=== PATIENT | female | born 1980 | race Caucasian/White ===

== ENCOUNTER → 2017-03-19 | Outpatient (CLI) | payer BC ==
--- NOTE | 2017-03-19 13:24 | MM ---
Reason for exam: clinical finding. Last mammogram was performed 5 years and 10 months ago. History: Patient had first child at age 31. Indicated problem(s): lump or thickening in the right breast. Physical Findings: Nurse Summary: A 1 x 1cm nodule in the right breast at 12 o'clock, patient area of concern (nurse ts). MG 3D Diag Mammo W/Cad ENDY Bilateral CC and MLO view(s) were taken. Prior study comparison: May 26, 2011, CAD bilateral diagnostic mammogram. There are scattered fibroglandular densities. Finding: There are typically benign round, diffuse and grouped calcifications in both breasts. There is no discrete abnormality. These results were verbally communicated with the patient and result sheet given to the patient on 03/19/17. ASSESSMENT: Incomplete: need additional imaging evaluation, BI-RAD 0 RECOMMENDATION: Ultrasound of the right breast. Palpable abnormality.
--- NOTE | 2017-03-19 13:30 | USB ---
Reason for exam: clinical finding. History: Patient had first child at age 31. US Breast Limited RT Right breast ultrasound demonstrates a 1.2 x 0.6 x 1.2cm oval, solid, hyperechoic lesion at 1 o'clock at palpable, probable lipoma. These results were verbally communicated with the patient and result sheet given to the patient on 03/19/17. ASSESSMENT: Probably benign, BI-RAD 3 RECOMMENDATION: Ultrasound of the right breast in 3-6 months. MTDD
== END | disposition home or self-care (01) ==
LOC: RADMAMWWP 08:44
PROVIDERS: ATTEND Obstetrics & Gynecology
DX: N63 Unspecified lump in breast (principal); R92.8 Other abnormal and inconclusive findings on diagnostic imaging of breast
CPT/HCPCS: 76642; G0204; G0279

== ENCOUNTER 2017-10-20 07:10 | Emergency (ER) | payer BC ==
[2017-10-20 07:15] VITALS: RESP 18
--- NOTE | 2017-10-20 07:47 | ED ---
General Adult HPI - General Chief complaint: Chest Pain Stated complaint: CHEST PAIN Time Seen by Provider: 10/20/17 07:10 Source: patient, RN notes reviewed Mode of arrival: ambulatory Limitations: no limitations - History of Present Illness Initial comments: This is a 37-year-old female presents emergency Department complaining of left sided chest pain on the left side of her breast. Patient states the pain comes and lasts for about 3 seconds and goes away. Patient states was no associated symptoms was no radiation of the pain. Patient states it feels like gas bubble but that is gone. Patient states this happened a handful of times since 5:45 this morning but none of last more than 3 seconds. Patient denied any shortness of breath or difficulty breathing. Patient denies any diaphoresis. Patient denies any nausea or vomiting. Patient states currently she is having no chest pain and feels completely normal. Patient denies high blood pressure or high cholesterol she does have diabetes and she denies any smoking history. Patient states her father did have a heart attack at 58. Patient denies any abdominal pain. Patient denies any recent fever chills or cough. Patient states she has been doing a lot of moving in the last few days so she thought maybe she strained something. - Related Data Home Medications Medication Instructions Recorded Confirmed Ibuprofen [Motrin Ib] 600 mg PO Q6H PRN 10/20/17 10/20/17 metFORMIN HCL ER [Glucophage Xr] 500 mg PO BID 10/20/17 10/20/17 Allergies Allergy/AdvReac Type Severity Reaction Status Date / Time amoxicillin Allergy Rash/Hives Verified 10/20/17 08:43 cephalexin [From Keflex] Allergy Itching Verified 10/20/17 08:43 Review of Systems ROS Statement: Those systems with pertinent positive or pertinent negative responses have been documented in the HPI. ROS Other: All systems not noted in ROS Statement are negative. Past Medical History Past Medical History: Diabetes Mellitus Additional Past Medical History / Comment(s): HX OF MTHFR, DIET CONTROLLED DIABETIC History of Any Multi-Drug Resistant Organisms: MRSA Date of last positivie culture/infection: 02/2016 MDRO Source:: left lower abdomen Past Surgical History: Adenoidectomy, Section, Cholecystectomy, Tonsillectomy Additional Past Surgical History / Comment(s): D&C, fatpad biopsy Past Anesthesia/Blood Transfusion Reactions: No Reported Reaction Past Psychological History: No Psychological Hx Reported Smoking Status: Never smoker Past Alcohol Use History: None Reported Past Drug Use History: None Reported - Past Family History Mother Family Medical History: No Reported History General Exam - General Exam Comments Initial Comments: GENERAL: Patient is well-developed and well-nourished. Patient is nontoxic and well- hydrated and is in no acute distress. ENT: Neck is soft and supple. No significant lymphadenopathy is noted. Oropharynx is clear. Moist mucous membranes. Neck has full range of motion without eliciting any pain. EYES: The sclera were anicteric and conjunctiva were pink and moist. Extraocular movements were intact and pupils were equal round and reactive to light. Eyelids were unremarkable. PULMONARY: Unlabored respirations. Good breath sounds bilaterally. No audible rales rhonchi or wheezing was noted. CARDIOVASCULAR: There is a regular rate and rhythm without any murmurs gallops or rubs. ABDOMEN: Soft and nontender with normal bowel sounds. No palpable organomegaly was noted. There is no palpable pulsatile mass. SKIN: Skin is clear with no lesions or rashes and otherwise unremarkable. NEUROLOGIC: Patient is alert and oriented 3 cranial nerves II through XII are grossly intact motor and sensory are also intact MUSCULOSKELETAL: Normal extremities with adequate strength and full range of motion. No lower extremity swelling or edema. No calf tenderness. LYMPHATICS: No significant lymphadenopathy is noted PSYCHIATRIC: Normal psychiatric evaluation. Limitations: no limitations Course Vital Signs 10/20/17 07:12 Temperature 98.1 F Pulse Rate 81 Respiratory 18 Rate Blood Pressure 178/75 O2 Sat by Pulse 100 Oximetry Medical Decision Making - Medical Decision Making EKG shows normal sinus rhythm at 70 bpm NV interval 134 QRS is 84 Q-T intervals 376 QTC is 406. EKG shows no ST segment elevation or depression or T wave abnormalities are noted. Chest x-ray shows no acute normalities. Patient states the frequency of these episodes is significantly reduced. I spoke with Dr. Dee he will follow-up with the patient. Patient is in agreement with this. - Lab Data Result diagrams: 10/20/17 08:04 10/20/17 08:04 Lab Results 10/20/17 10/20/17 10/20/17 Range/Units 08:04 08:04 08:04 WBC 7.1 (3.8-10.6) k/uL RBC 5.09 (3.80-5.40) m/uL Hgb 13.4 (11.4-16.0) gm/dL Hct 40.1 (34.0-46.0) % MCV 78.9 L (80.0-100.0) fL MCH 26.3 (25.0-35.0) pg MCHC 33.3 (31.0-37.0) g/dL RDW 13.6 (11.5-15.5) % Plt Count 229 (150-450) k/uL Neutrophils % 72 % Lymphocytes % 20 % Monocytes % 4 % Eosinophils % 3 % Basophils % 0 % Neutrophils # 5.1 (1.3-7.7) k/uL Lymphocytes # 1.4 (1.0-4.8) k/uL Monocytes # 0.3 (0-1.0) k/uL Eosinophils # 0.2 (0-0.7) k/uL Basophils # 0.0 (0-0.2) k/uL PT (9.0-12.0) sec INR (<1.2) APTT (22.0-30.0) sec Sodium 137 (137-145) mmol/L Potassium 4.9 (3.5-5.1) mmol/L Chloride 104 (98-107) mmol/L Carbon Dioxide 23 (22-30) mmol/L Anion Gap 10 mmol/L BUN 15 (7-17) mg/dL Creatinine 0.52 (0.52-1.04) mg/dL Est GFR (CKD-EPI)AfAm >90 (>60 ml/min/1.73 sqM) Est GFR (CKD-EPI)NonAf >90 (>60 ml/min/1.73 sqM) Glucose 242 H (74-99) mg/dL Calcium 9.0 (8.4-10.2) mg/dL Magnesium 1.8 (1.6-2.3) mg/dL Total Bilirubin 0.7 (0.2-1.3) mg/dL AST 34 (14-36) U/L ALT 37 (9-52) U/L Alkaline Phosphatase 114 (38-126) U/L Total Creatine Kinase 50 (30-135) U/L CK-MB (CK-2) 0.3 (0.0-2.4) ng/mL CK-MB (CK-2) Rel Index 0.6 Troponin I <0.012 (0.000-0.034) ng/mL Total Protein 6.7 (6.3-8.2) g/dL Albumin 3.4 L (3.5-5.0) g/dL 10/20/17 Range/Units 08:04 WBC (3.8-10.6) k/uL RBC (3.80-5.40) m/uL Hgb (11.4-16.0) gm/dL Hct (34.0-46.0) % MCV (80.0-100.0) fL MCH (25.0-35.0) pg MCHC (31.0-37.0) g/dL RDW (11.5-15.5) % Plt Count (150-450) k/uL Neutrophils % % Lymphocytes % % Monocytes % % Eosinophils % % Basophils % % Neutrophils # (1.3-7.7) k/uL Lymphocytes # (1.0-4.8) k/uL Monocytes # (0-1.0) k/uL Eosinophils # (0-0.7) k/uL Basophils # (0-0.2) k/uL PT 9.7 (9.0-12.0) sec INR 1.0 (<1.2) APTT 22.1 (22.0-30.0) sec Sodium (137-145) mmol/L Potassium (3.5-5.1) mmol/L Chloride (98-107) mmol/L Carbon Dioxide (22-30) mmol/L Anion Gap mmol/L BUN (7-17) mg/dL Creatinine (0.52-1.04) mg/dL Est GFR (CKD-EPI)AfAm (>60 ml/min/1.73 sqM) Est GFR (CKD-EPI)NonAf (>60 ml/min/1.73 sqM) Glucose (74-99) mg/dL Calcium (8.4-10.2) mg/dL Magnesium (1.6-2.3) mg/dL Total Bilirubin (0.2-1.3) mg/dL AST (14-36) U/L ALT (9-52) U/L Alkaline Phosphatase (38-126) U/L Total Creatine Kinase (30-135) U/L CK-MB (CK-2) (0.0-2.4) ng/mL CK-MB (CK-2) Rel Index Troponin I (0.000-0.034) ng/mL Total Protein (6.3-8.2) g/dL Albumin (3.5-5.0) g/dL Disposition Clinical Impression: Atypical chest pain Disposition: HOME SELF-CARE Instructions: Chest Pain (ED) Referrals: Loc Dee DO [Primary Care Provider] - 1-2 days Time of Disposition: 09:54
[2017-10-20 08:23] LABS: Basophils % (A) 0 %; Eosinophils # (A) 0.2 k/uL (0-0.7); Eosinophils % (A) 3 %; HCT 40.1 % (34.0-46.0); HGB 13.4 gm/dL (11.4-16.0); Lymphocytes # (A) 1.4 k/uL (1.0-4.8); Lymphocytes % (A) 20 %; MCH 26.3 pg (25.0-35.0); MCHC 33.3 g/dL (31.0-37.0); MCV 78.9 fL (80.0-100.0); Mean Platelet Volume 7.2; Monocytes # (A) 0.3 k/uL (0-1.0); Monocytes % (A) 4 %; Neutrophils # (A) 5.1 k/uL (1.3-7.7); Neutrophils % (A) 72 %; Platelet Count 229 k/uL (150-450); RBC 5.09 m/uL (3.80-5.40); RDW 13.6 % (11.5-15.5); WBC 7.1 k/uL (3.8-10.6)
--- NOTE | 2017-10-20 08:24 | XR ---
EXAMINATION TYPE: XR chest 2V DATE OF EXAM: 10/20/2017 COMPARISON: Chest x-ray August 31, 2015. CTA chest September 18, 2015. HISTORY: Left-sided chest pain and discomfort. TECHNIQUE: Frontal and lateral views of the chest are obtained. FINDINGS: Somewhat low lung volumes are redemonstrated. There is no focal air space opacity, pleural effusion, or pneumothorax seen. The cardiac silhouette size is within normal limits. The osseous s tructures are intact. IMPRESSION: No acute cardiopulmonary process. No significant change from prior studies.
[2017-10-20 08:30] LABS: ALT 37 U/L (9-52); AST 34 U/L (14-36); Albumin 3.4 g/dL (3.5-5.0); Alkaline Phosphatase 114 U/L (38-126); Anion Gap 10 mmol/L; Blood Urea Nitrogen 15 mg/dL (7-17); Carbon Dioxide 23 mmol/L (22-30); Chloride 104 mmol/L (98-107); Glucose 242 mg/dL (74-99); Magnesium 1.8 mg/dL (1.6-2.3); Sodium 137 mmol/L (137-145); Total Bilirubin 0.7 mg/dL (0.2-1.3); Total Protein 6.7 g/dL (6.3-8.2)
[2017-10-20 08:33] LABS: Partial Thromboplastin Time 22.1 sec (22.0-30.0); Prothrombin Time 9.7 sec (9.0-12.0)
[2017-10-20 08:44] LABS: Creatine Kinase 50 U/L (30-135)
[2017-10-20 08:48] LABS: Potassium 4.9 mmol/L (3.5-5.1)
[2017-10-20 08:55] LABS: Creatine Kinase MB 0.3 ng/mL (0.0-2.4); Troponin I <0.012 ng/mL (0.000-0.034)
[2017-10-20 10:07] VITALS: BP 143/66; PULSE 73; TEMP 98.3
== END 2017-10-20 10:08 | disposition home or self-care (01) ==
LOC: EC 07:10
DX: R07.89 Other chest pain (principal); E11.9 Type 2 diabetes mellitus without complications; Z86.14 Personal history of Methicillin resistant Staphylococcus aureus infection; Z79.84 Long term (current) use of oral hypoglycemic drugs; Z88.0 Allergy status to penicillin; Z88.1 Allergy status to other antibiotic agents
CPT/HCPCS: 36415; 71046; 80053; 82550; 82553; 83735; 84484; 85025; 85610; 85730; 93005; 99285

== ENCOUNTER → 2018-05-10 | Outpatient (CLI) | payer BC ==
--- NOTE | 2018-05-12 08:26 | USB ---
Reason for exam: clinical finding. History: Patient had first child at age 31. Physical Findings: Nurse Summary: 1cm round non tender nodul right breast 1 o'clock. Patient states increased in size. US Breast RT Prior study comparison: March 19, 2017, bilateral MG 3d diag mammo w/cad ENDY. March 19, 2017, right breast US breast limited RT. complete Right breast ultrasound includes all four quadrants, the retroareolar region and axilla. Finding demonstrates at the 1 o'clock position a oval solid 1.4 x 0.8 x 1.5 Hyperechoic lesion, slightly larger from previous study which correlates with the palpable. ASSESSMENT: Suspicious, BI-RAD 4 RECOMMENDATION: Ultrasound core biopsy of the right breast. Called Dr Dover with mammographic findings and has scheduled an appointment for 06/26/18 at 10:40 for a follow up results for the patient with Dr. Galaviz. Right Ultrasound core Biopsy scheduled for 05/26/18 at 1: 00 pm. PRELIMINARY REPORT CALLED AND FAXED TO DR. GALAVIZ ON 05/12/18
== END | disposition home or self-care (01) ==
LOC: RADUSWWP 15:36
PROVIDERS: ATTEND Obstetrics & Gynecology
DX: R92.8 Other abnormal and inconclusive findings on diagnostic imaging of breast (principal)

== ENCOUNTER → 2018-05-10 | Outpatient (CLI) | payer BC ==
--- NOTE | 2018-05-10 16:24 | US ---
EXAMINATION TYPE: US thyroid st tissue head/neck DATE OF EXAM: 05/10/2018 COMPARISON: US CLINICAL HISTORY: E04.2 Nontoxic multinodular goiter. F/U previous GLAND SIZE: Right Lobe: 4.1 x 1.5 x 1.3 cm Overall Parenchyma: homogenous Left Lobe: 4.5 x 1.5 x 1.5 cm Overall Parenchyma: homogeneous Isthmus Thickness: 0.5 cm NODULES RIGHT: # of nodules measured on right: 1 1. 1.0 X 0.8 x 1.2 cm hypoechoic mixed nodule at the lower/medial pole with well-defined margins; This nodule is wider than tall and shows no intranodular vascularity. Prior size: 0.4 LEFT: # of nodules measured on left: 1 1. 0.6 X 0.5 x 0.7 cm hypoechoic solid nodule at the lower pole with poorly defined margins; This n odule is wider than tall and shows no intranodular vascularity. Prior size: 0.5 x 0.4 x 0.6 cm Bilateral neck scanned, no evidence of lymphadenopathy. Nodule measured on each lobe, right nodule in creased in size from previous. IMPRESSION: 1. Enlarging nonspecific right thyroid nodule measuring slightly greater than 1 cm currently. Conside r tissue diagnosis. 2. Essentially stable left thyroid nodule.
== END | disposition home or self-care (01) ==
LOC: RADUSWWP 15:39
PROVIDERS: ATTEND Internal Medicine Endocrinology, Diabetes & Metabolism
DX: E04.2 Nontoxic multinodular goiter (principal)
CPT/HCPCS: 76536

== ENCOUNTER → 2018-11-18 | Outpatient (CLI) | payer BC ==
[2018-11-18 10:57] LABS: ALT 43 U/L (9-52); AST 30 U/L (14-36); Albumin 3.7 g/dL (3.5-5.0); Alkaline Phosphatase 113 U/L (38-126); Anion Gap 7 mmol/L; Blood Urea Nitrogen 14 mg/dL (7-17); Calcium 9.4 mg/dL (8.4-10.2); Carbon Dioxide 26 mmol/L (22-30); Chloride 103 mmol/L (98-107); Cholesterol 168 mg/dL (<200); Glucose 233 mg/dL (74-99); HDL Cholesterol 55 mg/dL (40-60); LDL Cholesterol,Calculated 93 mg/dL (0-99); Potassium 4.5 mmol/L (3.5-5.1); Sodium 136 mmol/L (137-145); Total Protein 6.9 g/dL (6.3-8.2); Triglycerides 102 mg/dL (<150)
--- NOTE | 2018-11-18 11:09 | US ---
EXAMINATION TYPE: US thyroid st tissue head/neck DATE OF EXAM: 11/18/2018 COMPARISON: NONE CLINICAL HISTORY: E04.2 Multinodular goiter nontoxic. GLAND SIZE: Right Lobe: cm Overall Parenchyma: Left Lobe: cm Overall Parenchyma: Isthmus Thickness: cm NODULES RIGHT: # of nodules measured on right: 1. X x cm nodule at the pole with margins; . This nodule is and shows . Prior size: x x cm 2. X x cm nodule at the pole with margins; . This nodule is and shows . Prior size: x x cm 3. X x cm nodule at the pole with margins; . This nodule is and shows . Prior size: x x cm 4. X x cm nodule at the pole with margins; . This nodule is and shows . Prior size: x x cm LEFT: # of nodules measured on left: 1. X x cm nodule at the pole with margins; . This nodule is and shows . Prior size: x x cm 2. X x cm nodule at the pole with margins; . This nodule is and shows . Prior size: x x cm 3. X x cm nodule at the pole with margins; . This nodule is and shows . Prior size: x x cm 4. X x cm nodule at the pole with margins; . This nodule is and shows . Prior size: x x cm ISTHMUS: # of nodules measured in the isthmus: 1. X x cm nodule at the pole with margins; . This nodule is and shows . Prior size: x x cm Bilateral neck scanned, no evidence of lymphadenopathy. IMPRESSION: EXAMINATION TYPE: US thyroid st tissue head/neck DATE OF EXAM: 11/18/2018 COMPARISON: US 05/10/2018 CLINICAL HISTORY: E04.2 Multinodular goiter nontoxic. GLAND SIZE: Right Lobe: 5.2 x 1.8 x 1.7 cm Overall Parenchyma: homogenous Left Lobe: 4.4 x 1.3 x 1.6 cm Overall Parenchyma: homogeneous Isthmus Thickness: 0.6 cm NODULES RIGHT: # of nodules measured on right: 1 1. 1.1 X 1.0 x 1.0 cm anechoic mixed nodule at the mid pole with well-defined margins . This nodul e is wider than tall and shows no intranodular vascularity. Prior size: 1.0 x 0.8 x 1.2 cm LEFT: # of nodules measured on left: 1 1. 0.6 X 0.5 x 0.7 cm hypoechoic solid nodule at the lower pole with well-defined margins. This no dule is wider than tall and shows intranodular vascularity. Prior size: 0.6 x 0.5 x 0.7 cm ISTHMUS: # of nodules measured in the isthmus: 0 Bilateral neck scanned, no evidence of lymphadenopathy. IMPRESSION: Stable nonspecific thyroid nodularity
== END | disposition home or self-care (01) ==
LOC: RADUSWWP 09:36
PROVIDERS: ATTEND Internal Medicine Endocrinology, Diabetes & Metabolism
DX: E04.2 Nontoxic multinodular goiter (principal); E11.65 Type 2 diabetes mellitus with hyperglycemia
CPT/HCPCS: 76536; 80053; 80061; 82043; 82570; 82607; 83036; 84443

== ENCOUNTER → 2019-02-27 | Outpatient (CLI) | payer BC | END | disposition home or self-care (01) | LOC: LABWHC1 16:27 | PROVIDERS: ATTEND Obstetrics & Gynecology | DX: N91.2 Amenorrhea, unspecified (principal) | CPT/HCPCS: 36415; 84702 ==

== ENCOUNTER → 2019-03-29 | Outpatient (CLI) | payer BC ==
[2019-03-29 16:53] LABS: African American GFR (CKD) 127.4 (60.0-200.0); Albumin/Globulin Ratio 1.54 (1.60-3.17); BUN/Creat Ratio 21.43 Ratio (12.00-20.00); Calcium 9.2 mg/dL (8.7-10.3); Chol/HDL Ratio 2.77; Globulin 2.6 g/dL (1.6-3.3); LDL Cholesterol,Calculated 68.8 mg/dL (0.0-131.0); Potassium 4.5 mmol/L (3.5-5.5); Total Bilirubin 0.9 mg/dL (0.3-1.2); Total Protein 6.6 g/dL (6.2-8.2); VLDL Calculation 16.2 mg/dL (5.00-40.00)
[2019-03-29 17:31] LABS: Hemoglobin A1C 6.3 % (4.0-6.0)
== END | disposition home or self-care (01) ==
LOC: LABWHC1 08:28
PROVIDERS: ATTEND Internal Medicine Endocrinology, Diabetes & Metabolism
DX: E11.65 Type 2 diabetes mellitus with hyperglycemia (principal)
CPT/HCPCS: 36415; 80053; 80061; 82043; 82570; 83036; 84443

== ENCOUNTER 2020-10-21 06:07 | Day surgery (SDC) | payer BC ==
[2020-10-15 13:00] VITALS: BMI 31.1
--- NOTE | 2020-10-20 16:19 | P.HPOB ---
History of Present Illness H&P Date: 10/20/20 Chief Complaint: Menorrhagia This patient is a pleasant 40 yr female who presents for an endometrial ablation secondary to menorrhagia. History such that she had gastric bypass surgery with significant weight loss. Ever since this time, her menses have been long and heavy. Evaluation has included a pelvic ultrasound which only showed a small uterine fibroid and a normal endometrial biopsy. Review of Systems Genitourinary: Reports menorrhagia Past Medical History Past Medical History: Diabetes Mellitus Additional Past Medical History / Comment(s): HX OF MTHFR, DIET CONTROLLED DIABETIC, IRREG. HEAVY MENSES History of Any Multi-Drug Resistant Organisms: MRSA Date of last positivie culture/infection: 02/2016 MDRO Source:: left lower abdomen Past Surgical History: Adenoidectomy, Bariatric Surgery, Section, Cholecystectomy, Tonsillectomy Additional Past Surgical History / Comment(s): D&C, fatpad biopsy, GASTRIC BYPASS, Past Anesthesia/Blood Transfusion Reactions: No Reported Reaction Past Psychological History: No Psychological Hx Reported Smoking Status: Never smoker Past Alcohol Use History: None Reported Past Drug Use History: None Reported - Past Family History Sister(s) Family Medical History: Cancer Additional Family Medical History / Comment(s): TWIN SISTER OF CANCER Mother Family Medical History: No Reported History Medications and Allergies Home Medications Medication Instructions Recorded Confirmed Type No Known Home Medications 10/15/20 10/15/20 History Allergies Allergy/AdvReac Type Severity Reaction Status Date / Time amoxicillin Allergy Rash/Hives Verified 10/15/20 12:53 Penicillins Allergy Anaphylaxis Verified 10/15/20 12:53 cephalexin [From Keflex] AdvReac Itching Verified 10/15/20 12:53 Exam - OBG Physical Exam Abdomen: bowel sounds normal, no diffuse tenderness, no bruit present, no guarding noted, no hepatomegaly, no splenomegaly, no mass Vulva: both: normal Vagina: normal moisture, no discharge Cervix: no lesion, no discharge Uterus: normal size Results Transvaginal ultrasound on 09/23 shows no significant findings (2cm fibroid). Normal endometrial biopsy. Assessment and Plan Assessment: This is a pleasant 40 yr female with longstanding menorrhagia requesting endometrial ablation. Plan is hysteroscopy, D&C, and Novasure endometrial ablation. Deyvi and Jayashree have discussed this surgery and risks: infection, bleeding, possible uterine perforation and/or thermal injury. All of her questions were answered and a written consent obtained. (1) Menorrhagia Status: Chronic Code(s): N92.0 - EXCESSIVE AND FREQUENT MENSTRUATION WITH RE GULAR CYCLE SNOMED Code(s): 251025719
[~2020-10-21 06:07] MED LIST: DEXAMETHASONE SOD PHOSPHATE 4 MG/ML 1 ML VIAL IV ONE; HYDROmorphone 0.5 MG/0.5 ML SYRINGE IVP PRN; LACTATED RINGERS 1,000 ML IV SCH; LIDOCAINE 1% (10MG/ML) FOR IV START INTRADERMA PRN; MIDAZOLAM 2 MG/2 ML VIAL IV PRN; ONDANSETRON 4 MG/2 ML VIAL IVP ONE; Pre Op ABX Message 1 EACH MISC MISCELLANE ONE
[2020-10-21 06:50] VITALS: RESP 16
[2020-10-21] MEDS ORDERED: SCOPOLAMINE 1.5MG/72HR PATCH TRANSDERM ONE (07:00)
[2020-10-21] MEDS ORDERED: PROPOFOL 10 MG/ML 20 ML VIAL IV ONE (07:20)
[2020-10-21] MEDS ORDERED: LIDOCAINE 1% INJ 10MG/ML (20 ML MDV) ONE (07:20)
[2020-10-21] MEDS ORDERED: KETOROLAC 15 MG/ML 1 ML VIAL ONE (07:20)
[2020-10-21] MEDS ORDERED: GLYCOPYRROLATE 0.2 MG/ML 2 ML VIAL ONE (07:20)
[2020-10-21] MEDS ORDERED: fentaNYL (PF) 50 MCG/ML 2 ML AMP ONE (07:20)
[2020-10-21 08:06] VITALS: TEMP 97.6
--- NOTE | 2020-10-21 08:23 | P.OP ---
Date of Procedure: 10/21/20 Preoperative Diagnosis: Menorrhagia Postoperative Diagnosis: Same Procedure(s) Performed: #1: Hysteroscopy. #2: Dilation and curettage. #3: NovaSure endometrial ablation Anesthesia: MAC Surgeon: Preston Dover Estimated Blood Loss (ml): 10 Urine output (ml): 20 Pathology: other (Uterine curettings) Condition: stable Disposition: PACU Indications for Procedure: Please see dictated H&P for intimate details of this patient's admission. Brief summary this is a pleasant 40-year-old 2 para 1 female long-standing menorrhagia requesting endometrial ablation for treatment. Patient I have discussed the surgery and risks and risks of infection, bleeding, possible uterine perforation, and/or thermal injury. All the patient's questions are answered written consent is obtained. Operative Findings: This patient is a normal appearing endometrial cavity Description of Procedure: This patient is taken to the operating room where she is laid in the supine position. She subsequently undergoes general mask anesthesia without incident. With an adequate level of anesthesia she's placed in dorsal lithotomy position. She has a vaginal and perineal prep and drape. Examination under anesthesia shows a mid position uterus. A weighted speculum was placed the posterior vagina. The bladder is drained for 20 mL of clear urine. I grasped the anterior lip of the cervix with an Allis clamp. Uterus is gently sounded to 9 cm. Serial dilation is done to allow the hysteroscope easily and the uterine cavity. Using saline solution hysteroscopy is performed uterine cavity is visualized and appears normal. Uterine cavity length was measured to be 6 cm. With this done the hysteroscope was removed. Cervix is dilated gently to allow a small curette easily uterine cavity a gentle but thorough 4 quadrant curettage is then done. With this done the NovaSure device is then opened it appears to be intact. It is set at a length of 6.0 cm and is seated in place and opens up to a width of 4.1 cm. With this done it passes the cavity integrity test. It is then enabled at 138 W's for 1 minute and 14 seconds. The NovaSure device is then removed and appears intact. Hysteroscopy is then repeated and the uterine cavity appears to be ablated up to the endocervix. With this done the procedure is then ended. The Allis clamp and weighted speculum removed. All counts are correct 3. There are no complications. Patient is taken to the recovery room in satisfactory condition.
[2020-10-21] MEDS ORDERED: LACTATED RINGERS 1,000 ML IV ONE (08:33)
[2020-10-21 09:13] VITALS: BP 136/73; PULSE 75
== END 2020-10-21 09:25 | disposition home or self-care (01) ==
LOC: OR 06:07
PROVIDERS: ATTEND Obstetrics & Gynecology
DX: R89.7 Abnormal histological findings in specimens from other organs, systems and tissues (principal); N92.0 Excessive and frequent menstruation with regular cycle; E11.9 Type 2 diabetes mellitus without complications; E72.12 Methylenetetrahydrofolate reductase deficiency; Z86.14 Personal history of Methicillin resistant Staphylococcus aureus infection; Z88.0 Allergy status to penicillin; Z98.84 Bariatric surgery status; Z90.89 Acquired absence of other organs; Z98.890 Other specified postprocedural states; Z90.49 Acquired absence of other specified parts of digestive tract; Z88.1 Allergy status to other antibiotic agents; Z80.9 Family history of malignant neoplasm, unspecified
CPT/HCPCS: 81025; 88305; 58563; J2250; J1100; J2405; J2001; J3010; J1885; J2704

== ENCOUNTER → 2021-02-27 | Outpatient (CLI) | payer BC ==
[2021-02-27 19:00] LABS: HCT 42.2 % (37.2-46.3); HGB 13.9 g/dL (12.0-15.0); MCH 30.7 pg (27.0-32.0); MCHC 32.9 g/dL (32.0-37.0); MCV 93.2 fL (80.0-97.0); Mean Platelet Volume 11.8 fL (9.5-12.2); Platelet Count 236 X 10*3/uL (140-440); RBC 4.53 X 10*6/uL (4.10-5.20); RDW 12.1 % (11.5-14.5); WBC 7.53 X 10*3/uL (4.50-10.00)
[2021-02-27 22:17] LABS: Albumin 4.1 g/dL (3.80-4.90)
== END | disposition home or self-care (01) ==
LOC: LABWHC1 11:33
PROVIDERS: ATTEND Specialist
DX: Z01.812 Encounter for preprocedural laboratory examination (principal)
CPT/HCPCS: 36415; 82040; 84134; 85027

== ENCOUNTER → 2022-04-13 | Outpatient (CLI) | payer BC ==
--- NOTE | 2022-04-13 12:35 | XR ---
EXAMINATION TYPE: XR chest 2V DATE OF EXAM: 04/13/2022 COMPARISON: 10/20/2017 TECHNIQUE: PA and lateral views submitted. HISTORY: Cough FINDINGS: The lungs are clear and there is no pneumothorax, pleural effusion, or focal pneumonia. Heart size normal. No overt failure. Hypertrophic degenerative changes of spine. Hyperinflation of the lungs. IMPRESSION: 1. No acute process. 2. Correlate for COPD or asthma.
== END | disposition home or self-care (01) ==
LOC: RADXRMAIN 12:13
PROVIDERS: ATTEND Nurse Practitioner Family
DX: R05.9 Cough, unspecified (principal)
CPT/HCPCS: 71046

== ENCOUNTER → 2022-04-29 | Outpatient (CLI) | payer BC ==
--- NOTE | 2022-04-29 12:02 | XR ---
EXAMINATION TYPE: XR chest 2V DATE OF EXAM: 04/29/2022 11:52 AM COMPARISON: Chest radiographs from 04/13/2022. TECHNIQUE: XR chest 2V Frontal and lateral views of the chest. CLINICAL INDICATION:Female, 42 years old with history of J18.9 PNEUMONIA, UNSPECIFIED ORGANISM; FINDINGS: Lungs/Pleura: There is no evidence of pleural effusion, focal consolidation, or pneumothorax. Hyperi nflation of the lungs. Pulmonary vascularity: Unremarkable. Heart/mediastinum: Cardiomediastinal silhouette is unremarkable. Musculoskeletal: No acute osseous pathology. Degenerative changes of the spine. IMPRESSION: 1. No acute cardiopulmonary disease/process. 2. Hyperinflation of the lungs. Correlate for COPD or asthma.
== END | disposition home or self-care (01) ==
LOC: RADXRMAIN 11:43
PROVIDERS: ATTEND Family Medicine
DX: R91.8 Other nonspecific abnormal finding of lung field (principal)
CPT/HCPCS: 71046

== ENCOUNTER → 2023-04-29 | Outpatient (CLI) | payer BC ==
--- NOTE | 2023-04-29 16:31 | US ---
EXAMINATION TYPE: US thyroid st tissue head/neck DATE OF EXAM: 04/29/2023 COMPARISON: US 2019 CLINICAL INDICATION: Female, 43 years old with history of E04.1 THYROID NODULES; GLAND SIZE: Right Lobe: 4.3 x 1.2 x 1.9 cm Overall Parenchyma: homogenous Left Lobe: 4.0 x 1.4 x 1.6 cm Overall Parenchyma: homogeneous Isthmus Thickness: 0.4 cm NODULES RIGHT: # of nodules measured on right: 1 1. 1.3 X 1.0 x 1.1 cm, lower medial, solid or almost completely solid, isoechoic nodule, which is w ider than tall, with ill-defined margins, without echogenic foci. Prior size: 1.1 x 1.0 x 1.0 cm LEFT: # of nodules measured on left: 1 1. 0.8 X 0.6 x 0.7 cm, lower medial, solid or almost completely solid, hypoechoic nodule, which is wider than tall, with ill-defined margins, without echogenic foci. Prior size: 0.7 x 0.5 x 0.7 cm ISTHMUS: # of nodules measured in the isthmus: 0 Bilateral neck scanned, no evidence of lymphadenopathy. IMPRESSION: TR3 nodule mildly suspicious. Fine needle aspiration if greater than or equal to 2.5 cm
== END | disposition home or self-care (01) ==
LOC: RADUSWWP 15:20
PROVIDERS: ATTEND Family Medicine
DX: E04.1 Nontoxic single thyroid nodule (principal)
CPT/HCPCS: 76536

== ENCOUNTER → 2023-11-16 | Outpatient (CLI) | payer BC ==
--- NOTE | 2023-11-16 16:12 | US ---
EXAMINATION TYPE: US thyroid st tissue head/neck DATE OF EXAM: 11/16/2023 COMPARISON: 04/29/2023. CLINICAL INDICATION: Female, 43 years old with history of E04.1 NONTOXIC SINGLE THYROID NODULE; thyro id nodules GLAND SIZE: Right Lobe: 5.3 x 1.8 x 2.0 cm Overall Parenchyma: homogeneous Left Lobe: 5.2 x 1.5 x 1.8 cm Overall Parenchyma: homogeneous Isthmus Thickness: 0.4 cm NODULES RIGHT: # of nodules measured on right: 1 1. 1.5 X 1.1 x 1.3 cm, lower medial, Prior size: 1.3 x 1.0 x 1.1 cm TIRADS Score: 3 TIRADS Category 3: Composition: Solid or almost completely solid (2 points). Echogenicity: Hyperechoic or isoechoic (1 point). Shape: Wider than tall (0 points). Margin: Smooth (0 points). Echogenic foci: None or large comet-tail artifacts (0 points) Recommendation: If >2.5cm: FNA; If >1.5cm: Follow up at 1,3,5 years LEFT: # of nodules measured on left: 1 1. 0.8 X 0.5 x 0.6 cm, lower medial, Prior size: 0.8 x 0.6 x 0.7 cm TIRADS Score: 4 TIRADS Category 4: Composition: Solid or almost completely solid (2 points). Echogenicity: Hypoechoic (2 points). Shape: Wider than tall (0 points). Margin: Smooth (0 points). Echogenic foci: None or large comet-tail artifacts (0 points) Recommendation: If >1.5cm: FNA; If >1cm: Follow up at 1,2, 3,5 years ISTHMUS: # of nodules measured in the isthmus: 0 Bilateral neck scanned, no evidence of lymphadenopathy. IMPRESSION: Bilateral thyroid nodules that meet criteria for follow-up.
== END | disposition home or self-care (01) ==
LOC: RADUSWWP 14:47
PROVIDERS: ATTEND Family Medicine
DX: E04.2 Nontoxic multinodular goiter (principal)
CPT/HCPCS: 76536

== ENCOUNTER → 2024-02-11 | Outpatient (CLI) | payer BC ==
--- NOTE | 2024-03-08 11:34 | MM ---
Reason for Exam: Screening (asymptomatic). Last mammogram was performed 6 year(s) and 11 month(s) ago. Patient History: Menarche at age 12. First Full-Term at age 31. Late child-bearing (after 30). Risk Values: Cande 5 year model risk: 1.0%. NCI Lifetime model risk: 13.2%. Prior Study Comparison: 06/26/2005 Bilateral Diagnostic Mammogram, [facility]. 05/26/2011 Bilateral Diagnostic Mammogram, [facility]. 03/19/2017 Bilateral Diagnostic Mammogram, [facility]. Tissue Density: The breasts are almost entirely fatty. Findings: Analyzed By CAD. Right breast: There is no suspicious group of microcalcifications or new suspicious mass. Left breast: There is no suspicious group of microcalcifications or new suspicious mass. Overall Assessment: Negative, BI-RAD 1 Management: Screening Mammogram of both breasts in [address] [facility] will attempt to contact patient to return for supplemental views and ultrasound if indicated. Patient should continue monthly self-breast exams. A clinical breast exam by your physician is recommended on an annual basis. This exam should not preclude additional follow-up of suspicious palpable abnormalities. Note on Cande scores and lifetime risk: 1. A Cande score greater than 3% is considered moderate risk. If this is the case, consider specialist referral to assess eligibility for a risk reducing agent. 2. If overall lifetime risk for the development of breast cancer is 20% or higher, the patient may qualify for future screening with alternating mammogram and breast MRI. Electronically signed and approved by: Morris Gibbons DO
== END | disposition home or self-care (01) ==
LOC: RADMAMWWP 07:15
PROVIDERS: ATTEND Obstetrics & Gynecology
DX: Z12.31 Encounter for screening mammogram for malignant neoplasm of breast (principal)
CPT/HCPCS: 77063; 77067